=== PATIENT | male | born 1965 | race Caucasian/White ===

== ENCOUNTER 2018-08-21 09:12 | Emergency (ER) | payer OTHER ==
[~2018-08-21] VITALS: Ht 185.4 cm; Wt 81.0 kg
[2018-08-21 10:18] LABS: HEMATOCRIT 45.3 % (39.0-50.0); HEMOGLOBIN 15.2 g/dl (14.0-18.0); IMMATURE GRANULOCYTES 0.8 % (0.0-5.0); MEAN CELL VOLUME 90.6 fL CALC (80.0-100.0); MEAN CORPUSCULAR HGB 30.4 pG CALC (26.0-32.0); MEAN CORPUSCULAR HGB CONC 33.6 g/L CALC (32.0-36.0); NEUT# 4.21 thou/uL (1.82-7.42)
[2018-08-21 10:26] LABS: ALBUMIN 4.8 g/dL (3.2-5.0); ALKALINE PHOSPHATASE 83 u/l (38-126); ANION GAP 15 (6-22 (CALC)); BILIRUBIN, TOTAL 0.9 mg/dL (0.0-1.4); BUN 18 mg/dL (9-20); BUN/CREATININE RATIO 18 (12-20 (CALC)); CARBON DIOXIDE 27 mmol/l (22-30); CHLORIDE 104 mmol/l (95-108); GFR > 60 ML/MIN (>=60 (CALC)); GFR FOR AFR.AMER. > 60 ML/MIN (>=60 (CALC)); LIPASE 22 u/l (23-300); POTASSIUM 4.3 mmol/l (3.5-5.1); SGOT/AST 43 u/l (17-59); SODIUM 141 mmol/l (137-146); TOTAL PROTEIN 8.7 g/dL (6.3-8.2)
[2018-08-21] MEDS ORDERED: MOTRIN400 MG PO (11:48)
[2018-08-21 11:54] VITALS: BP 167/83
== END 2018-08-21 12:05 | disposition home or self-care (01) | DRG 605 ==
LOC: ED 09:12
PROVIDERS: Family Medicine
DX: S20.212A Contusion of left front wall of thorax, initial encounter (principal); W17.89XA Other fall from one level to another, initial encounter; Y93.H3 Activity, building and construction; Y92.008 Other place in unspecified non-institutional (private) residence as the place of occurrence of the external cause; Y99.0 Civilian activity done for income or pay
CPT/HCPCS: Q9967